=== PATIENT | male | born 1985 | race African-American/Black ===

== ENCOUNTER 2020-09-09 09:13 | Emergency (ER) | payer OTHER ==
[2020-09-09 09:26] VITALS: BP 155/84; PULSE 87; TEMP 98.8; BMI 37.2
[2020-09-09] MEDS ORDERED: LIDOCAINE 5% TOPICAL PATCH TP ONE (09:39)
[2020-09-09] MEDS ORDERED: KETOROLAC TROMETHAMINE 30 MG/1 ML VIAL IM ONE (09:39)
[2020-09-09] MEDS ORDERED: KETOROLAC TROMETHAMINE 30 MG/1 ML VIAL ONE (09:47)
[2020-09-09] MEDS ORDERED: LIDOCAINE 5% TOPICAL PATCH ONE (09:47)
== END 2020-09-09 11:09 | disposition home or self-care (01) ==
LOC: JERFT 09:13
PROC: 3E0233Z Introduction of Anti-inflammatory into Muscle, Percutaneous Approach (ICD-10-PCS; principal; 2020-09-09)
DX: M54.5 Low back pain (principal)
CPT/HCPCS: 99284-25

== ENCOUNTER 2021-01-15 08:47 | Emergency (ER) | payer OTHER ==
[2021-01-15 08:58] VITALS: BP 167/98; PULSE 75; TEMP 97.5; BMI 37.2
== END 2021-01-15 09:59 | disposition home or self-care (01) ==
LOC: JER 08:47
DX: L84 Corns and callosities (principal)
CPT/HCPCS: 99281-25

== ENCOUNTER 2021-02-12 08:42 | Emergency (ER) | payer OTHER ==
[2021-02-12 08:48] VITALS: BP 157/92; PULSE 86; TEMP 98.2; BMI 37.2
[2021-02-12] MEDS ORDERED: KETOROLAC TROMETHAMINE 30 MG/1 ML VIAL IM ONE (09:39)
[2021-02-12] MEDS ORDERED: KETOROLAC TROMETHAMINE 30 MG/1 ML VIAL ONE (09:43)
== END 2021-02-12 09:52 | disposition home or self-care (01) ==
LOC: JER 08:42
PROC: 3E023GC Introduction of Other Therapeutic Substance into Muscle, Percutaneous Approach (ICD-10-PCS; principal; 2021-02-12)
DX: R07.89 Other chest pain (principal)
CPT/HCPCS: 99284-25

== ENCOUNTER 2021-05-30 01:50 | Emergency (ER) | payer OTHER ==
[2021-05-30 02:11] VITALS: BP 150/96; PULSE 88; TEMP 98.4; BMI 33.3
[2021-05-30] MEDS ORDERED: DIPHTH,PERTUSS(ACELL),TET 0.5 ML DISP.SYRIN IM ONE ×2 (04:31→04:55)
[2021-05-30] MEDS ORDERED: IBUPROFEN 600 MG TABLET (FP) PO ONE ×2 (04:31→04:55)
[2021-05-30] MEDS ORDERED: LIDO 2%/EPI 1:200000 PRESRVFRE (20 ML SDVIAL) EP ONE (05:03)
[2021-05-30] MEDS ORDERED: LIDOCAINE 1%/EPI 1:100000 (20 ML MULTI DOSE VIAL) ONE ×2 (05:09→06:04)
[2021-05-30] MEDS ORDERED: LIDOCAINE HCL 2% (50ML VIAL) DT ONE (19:48)
== END 2021-05-30 07:20 ==
LOC: JER 01:50
PROC: 0HQBXZZ Repair Right Upper Arm Skin, External Approach (ICD-10-PCS; principal; 2021-05-30)
PROC: 3E0234Z Introduction of Serum, Toxoid and Vaccine into Muscle, Percutaneous Approach (ICD-10-PCS; 2021-05-30)
DX: S41.011A Laceration without foreign body of right shoulder, initial encounter (principal)
CPT/HCPCS: 12004; 90471; 90715; 99284-25

== ENCOUNTER 2021-06-09 08:57 | Emergency (ER) | payer OTHER ==
[2021-06-09 09:13] VITALS: BP 152/94; PULSE 90; TEMP 98.4; BMI 33.3
== END 2021-06-09 09:26 | disposition home or self-care (01) ==
LOC: JER 08:57
DX: Z48.02 Encounter for removal of sutures (principal)
CPT/HCPCS: 99281-25

== ENCOUNTER 2022-09-16 18:19 | Emergency (ER) | payer OTHER ==
[2022-09-16 18:32] VITALS: BP 159/100; PULSE 81; RESP 18; TEMP 99.4; BMI 31.2
[2022-09-16] MEDS ORDERED: SODIUM CHLORIDE 0.9% 500 ML INFUS.BAG IV ONE (21:13)
[2022-09-16] MEDS ORDERED: KETOROLAC TROMETHAMINE 30 MG/1 ML VIAL IVPUSH ONE (21:13)
[2022-09-16 21:43] LABS: BASO % 1.2 % (0-2.0); EOS % 2.1 % (0-4.5); HEMATOCRIT 49.2 % (35.4-49); HEMOGLOBIN 16.2 GM/dL (11.7-16.9); LYMPH % 29.4 % (8-40); MCH 27.9 pg (25.7-33.7); MCHC 32.8 g/dl (32.0-35.9); MEAN CELL VOLUME 84.8 fl (80-96); MONO % 20.1 % (3.8-10.2); NEUT % 47.2 % (42.8-82.8); PLATELET COUNT 239 10^3/uL (134-434); RDW 14.7 % (11.9-15.9); WHITE BLOOD COUNT 5.2 K/mm3 (4.0-10.0)
[2022-09-16] MEDS ORDERED: KETOROLAC TROMETHAMINE 30 MG/1 ML VIAL ONE (21:58)
[2022-09-16 22:05] LABS: CALCIUM 9.1 mg/dL (8.5-10.1)
[2022-09-16 22:06] LABS: ALBUMIN 3.7 g/dl (3.4-5.0); BLOOD UREA NITROGEN 9.5 mg/dL (7-18)
[2022-09-16 22:11] LABS: BILIRUBIN,TOTAL 0.8 mg/dL (0.2-1); TOT PROT 7.9 g/dl (6.4-8.2)
[2022-09-16 22:53] LABS: ANISOCYTOSIS 2+; MACROCYTOSIS 0; TEAR DROP CELLS 1+
== END 2022-09-16 23:09 | disposition home or self-care (01) ==
LOC: JER 18:19
PROC: 3E0333Z Introduction of Anti-inflammatory into Peripheral Vein, Percutaneous Approach (ICD-10-PCS; principal; 2022-09-16)
DX: J20.5 Acute bronchitis due to respiratory syncytial virus (principal)
CPT/HCPCS: 0241U-QW; 36415; 80053; 85025; 99284-25